=== PATIENT | female | born 1995 | race Two or more races ===

== ENCOUNTER 2020-09-16 16:40 | Emergency (ER) | payer SELFPAY ==
[~2020-09-16] VITALS: Ht 157.5 cm; Wt 61.2 kg
--- NOTE | 2020-09-16 16:54 | NUR ---
TO ER BED 3, C/O RT SIDE NECK PAIN, RT EAR RINGING, AND RT LEG AND FOOT PAIN, CHANGED TO GOWN, ATTACHED TO MONITOR, AWAITING MD RECINOS
--- NOTE | 2020-09-16 17:00 | NUR ---
URINE COLLECTED AND SENT TO LAB
[2020-09-16] MEDS ORDERED: IBUP-1955 PO (17:11)
[2020-09-16 17:21] VITALS: BP 118/60
== END 2020-09-16 17:22 | disposition home or self-care (01) ==
LOC: ER 16:51
DX: S13.4XXA Sprain of ligaments of cervical spine, initial encounter (principal); S09.8XXA Other specified injuries of head, initial encounter; V49.49XA Driver injured in collision with other motor vehicles in traffic accident, initial encounter; Y93.89 Activity, other specified; Y92.413 State road as the place of occurrence of the external cause; Y99.8 Other external cause status